=== PATIENT | male | born 1985 | race Caucasian/White ===

== ENCOUNTER 2018-03-24 23:50 | Emergency (ER) | payer OTHER ==
[~2018-03-24] VITALS: Ht 177.8 cm; Wt 70.3 kg
[~2018-03-24 23:50] MED LIST: ACYC200 PO; ALBU90OI INH; CEPH500 PO; HYDACE5 PO; INS70/30I; INSDET100 SQ; INSUASPI SC; INSULIN; META800 PO; METCAR500 PO; NAPR500 PO; OXYACE5T PO; RXTRAM50 PO; TRAM50 PO
[2018-03-25] MEDS ORDERED: IBUP400 PO (00:56)
[2018-03-25] MEDS ORDERED: HYDR1TAB94 PO (00:56)
[2018-03-25] MEDS ORDERED: Flonase 0.05% N16 GM (00:56)
== END 2018-03-25 01:10 | disposition home or self-care (01) ==
LOC: ER 23:50
DX: J32.9 Chronic sinusitis, unspecified (principal); E11.9 Type 2 diabetes mellitus without complications; F17.200 Nicotine dependence, unspecified, uncomplicated; Z79.4 Long term (current) use of insulin
CPT/HCPCS: 99283

== ENCOUNTER 2022-08-31 02:54 | Emergency (ER) | payer OTHER ==
[~2022-08-31] VITALS: Ht 177.8 cm; Wt 72.6 kg
[~2022-08-31 02:54] MED LIST changes: +Flonase 0.05% N16 GM; +HYDR1TAB94 PO; +IBUP400 PO
== END 2022-08-31 05:15 | disposition home or self-care (01) ==
LOC: ER 02:54
DX: S62.636A Displaced fracture of distal phalanx of right little finger, initial encounter for closed fracture (principal); S63.216A Subluxation of metacarpophalangeal joint of right little finger, initial encounter; E11.9 Type 2 diabetes mellitus without complications; F17.210 Nicotine dependence, cigarettes, uncomplicated; Y04.2XXA Assault by strike against or bumped into by another person, initial encounter; Z79.4 Long term (current) use of insulin; Z79.899 Other long term (current) drug therapy
CPT/HCPCS: 73110; 73130; 82947

== ENCOUNTER 2023-11-25 01:44 | Observation (INO) | payer OTHER ==
[2023-11-25] VITALS (35 sets, daily range): BP systolic 110–152; BP diastolic 61–94
[~2023-11-25] VITALS: Ht 180.3 cm; Wt 63.7 kg
[2023-11-25] MEDS ORDERED: Insulin Human Regular 100 UNIT in NS 100 ML IV SCH ×2 (01:55→03:50)
[2023-11-25] MEDS ORDERED: Lactated Ringer's 1,000 ML IV ONE (01:55)
[2023-11-25] MEDS ORDERED: Ondansetron HCl 2 MG / ML 2ML Vial IV PRN ×2 (01:55→03:40)
[2023-11-25 01:57] LABS: Base Excess Venous -24.5 mmol/L; Bicarbonate Venous 9.2 mmol/L (24.0-30.0); PCO2 Venous 21.4 mmHg (38-42)
[2023-11-25 01:59] LABS: pH Blood Venous 7.05 (7.34-7.37)
[2023-11-25] MEDS ORDERED: Metoclopramide HCl 5MG / ML 2ML Vial IV ONE (02:00)
[2023-11-25] MEDS ORDERED: Pantoprazole Sodium 40 MG Injection IV ONE (02:00)
[2023-11-25 02:25] LABS: BASOPHILS ABSOLUTE AUTO 0.09 K/mm3 (0.00-0.23); BASOPHILS PERCENT AUTO 0 % (0-2); EOSINOPHILS ABSOLUTE AUTO 0.02 K/mm3 (0.00-0.68); EOSINOPHILS PERCENT AUTO 0 % (0-6); Hematocrit 47.5 % (37.0-53.0); Hemoglobin 15.9 g/dL (13.5-17.5); IMMATURE GRAN ABSOLUTE AUTO 0.62 K/mm3 (0.00-0.10); IMMATURE GRAN PERCENT AUTO 2 % (0-1); LYMPHOCYTES ABSOLUTE AUTO 1.22 K/mm3 (0.84-5.20); LYMPHOCYTES PERCENT AUTO 4 % (21-46); MONOCYTES PERCENT AUTO 9 % (4-13); Mean Corpuscular HGB 31.1 pg (26.0-34.0); Mean Corpuscular HGB Conc 33.5 g/dL (31.5-36.5); Mean Corpuscular Volume 93 fL (80-100); Mean Platelet Volume 11.4 fL (9.1-12.4); NEUTROPHILS ABSOLUTE AUTO 26.74 K/mm3 (1.96-9.15); NEUTROPHILS PERCENT AUTO 85 % (41-73); Platelet Count 311 K/mm3 (150-400); RDW Coefficient Variation 11.8 % (11.7-14.2); RDW Standard Deviation 40.4 fL (35.1-46.3); Red Blood Cell Count 5.11 M/mm3 (4.30-5.90); White Blood Cell Count 31.49 K/mm3 (4.00-11.30)
[2023-11-25 02:43] LABS: Albumin, Blood 4.2 g/dL (3.4-5.0); Albumin/Globulin Ratio 1.2 (0.8-1.8); Bilirubin, Total 0.8 mg/dL (0.1-1.0); Bun/Creatinine Ratio 32.6 (12.0-20.0); Calcium, Blood 9.6 mg/dL (8.5-10.1); Creatinine, Blood 1.35 mg/dL (0.60-1.20); Globulin, Blood 3.6 g/dL (2.2-4.0); Potassium, Blood 5.8 mmol/L (3.5-5.5); Total Protein, Blood 7.8 g/dL (6.4-8.2)
[2023-11-25] MEDS ORDERED: Lactated Ringer's 1,000 ML IV SCH ×2 (02:45→07:50)
[2023-11-25] MEDS ORDERED: Potassium Chloride 40 MEQ in NS 250 ML IV ONE (02:45)
[2023-11-25 02:52] LABS: BAND PERCENT MAN 8 % (0-8); BASOPHILS PERCENT MAN 0 % (0-2); EOSINOPHILS PERCENT MAN 0 % (0-6); LYMPHOCYTES ABSOLUTE MAN 0.62 K/mm3 (0.84-5.20); LYMPHOCYTES PERCENT MAN 2 % (21-46); MONOCYTES ABSOLUTE MAN 2.51 K/mm3 (0.16-1.47); MONOCYTES PERCENT MAN 8 % (4-13); NEUTROPHILS ABSOLUTE MAN 28.34 K/mm3 (1.96-9.15); SEG NEUTROPHILS PERCENT MAN 82 % (41-73); TOTAL CELLS COUNTED 100
[2023-11-25] MEDS ORDERED: FLU VACC QS2023-24(6MOS UP)/PF 60 MCG/0.5 ML SYRINGE IM ONE (03:40)
[2023-11-25] MEDS ORDERED: Metoclopramide HCl 5MG / ML 2ML Vial IV PRN (03:45)
[2023-11-25] MEDS ORDERED: Sodium Bicarb 8.4% Inj 75 MEQ in Sodium Chloride 0.45% 1,000 ML IV SCH (03:50)
[2023-11-25 03:57] LABS: Source, Urine Clean Catch
[2023-11-25 03:59] LABS: Beta-hydroxybutyrate 135.8 mg/dL (0.2-2.8)
[2023-11-25 03:59] LABS: Appearance, Urine Clear (Clear); Bilirubin, Urine Neg (Neg); Blood, Urine 3+ (Neg); Color, Urine Yellow (P-Yellow); Glucose Qualitative, Urine 4+ (Neg); Ketones, Urine 4+ (Neg); Leukocyte Esterase, Urine 1+ (Neg); Nitrite, Urine Neg (Neg); Protein, Urine 2+ (Neg); Specific Gravity, Urine 1.025 (1.003-1.022); Urobilinogen, Urine NORM (Normal)
[2023-11-25 04:13] LABS: Bacteria Rare /hpf; Red Blood Cells, Urine 0-2 /hpf (0-2); Squamous Epithelial Cells Rare /hpf (Few); White Blood Cells, Urine 0-2 /hpf (0-5)
[2023-11-25 04:37] LABS: Bun/Creatinine Ratio 36.2 (12.0-20.0); Calcium, Blood 8.8 mg/dL (8.5-10.1); Creatinine, Blood 1.27 mg/dL (0.60-1.20); Potassium, Blood 5.2 mmol/L (3.5-5.5)
[2023-11-25 05:38] LABS: International Normalized Ratio 1.08; Prothrombin Time Results 11.3 Sec (9.7-11.5)
[2023-11-25 06:36] LABS: Glucose, Blood 494 mg/dL (70-99)
[2023-11-25] MEDS ORDERED: Enoxaparin 40 MG/0.4 ML SYR SC SCH (09:00)
[2023-11-25] MEDS ORDERED: Acetaminophen 325 MG TABLET PO PRN (09:43)
[2023-11-25] MEDS ORDERED: Lidocaine 2% Viscous Soln 20 ML,Nystatin 100,000 Unit/ml Susp 20 ML,Mag Hydrox/Al Hydro... MT PRN (09:55)
[2023-11-25 10:17] LABS: BASOPHILS ABSOLUTE AUTO 0.03 K/mm3 (0.00-0.23); BASOPHILS PERCENT AUTO 0 % (0-2); EOSINOPHILS PERCENT AUTO 0 % (0-6); Hematocrit 41.3 % (37.0-53.0); Hemoglobin 14.6 g/dL (13.5-17.5); IMMATURE GRAN ABSOLUTE AUTO 0.11 K/mm3 (0.00-0.10); IMMATURE GRAN PERCENT AUTO 1 % (0-1); LYMPHOCYTES PERCENT AUTO 6 % (21-46); MONOCYTES ABSOLUTE AUTO 1.43 K/mm3 (0.16-1.47); MONOCYTES PERCENT AUTO 7 % (4-13); Mean Corpuscular HGB 30.4 pg (26.0-34.0); Mean Corpuscular HGB Conc 35.4 g/dL (31.5-36.5); Mean Platelet Volume 9.9 fL (9.1-12.4); NEUTROPHILS PERCENT AUTO 87 % (41-73); Platelet Count 243 K/mm3 (150-400); RDW Coefficient Variation 11.9 % (11.7-14.2); RDW Standard Deviation 37.2 fL (35.1-46.3); Red Blood Cell Count 4.81 M/mm3 (4.30-5.90); White Blood Cell Count 21.07 K/mm3 (4.00-11.30)
[2023-11-25 10:41] LABS: Mean Corpuscular Volume 86 fL (80-100)
[2023-11-25 10:49] LABS: Albumin, Blood 3.6 g/dL (3.4-5.0); Albumin/Globulin Ratio 1.1 (0.8-1.8); Bilirubin, Total 0.5 mg/dL (0.1-1.0); Bun/Creatinine Ratio 37.1 (12.0-20.0); Calcium, Blood 8.6 mg/dL (8.5-10.1); Creatinine, Blood 1.05 mg/dL (0.60-1.20); Globulin, Blood 3.3 g/dL (2.2-4.0); Potassium, Blood 4.5 mmol/L (3.5-5.5); Total Protein, Blood 6.9 g/dL (6.4-8.2)
--- NOTE | 2023-11-25 10:56 | NUR ---
PT ADMITTED TO ICU FROM ER AT 0750 FOR DKA. PT ARRIVED LETHARGIC/DROWSY, OX3. PT AWAKENS TO ANSWER QUESTIONS BUT QUICKLY FALLS BACK TO SLEEP AFTER ANSWERING. PT ARRIVED WITH BICARB GTT AT 125 AND INSULIN GTT AT 7.3UNITS/HR. INSULIN DECREASED TO 6UNITS AND IS NOW AGAIN AT 7UNITS. BICARB GTT WAS DC'D AND LR WAS STARTED AT 200CC/HR. PT DENIES NAUSEA, C/O GENERALIZED DISCOMFORT "EVERYWHERE". PT C/O MOUTH PAIN. MOUTH IS BRIGHT RED WITH SEVERAL CANKER SORES; LUCIA OUR DENTAL HYGIENIST EVALUATED PT, MAGIC MOUTH WASH ORDERED. MONITOR INITIALLY SHOWED SOME ST EVEVATION IN V LEAD, MD NOTIFED; EKG COMPLETED AND SHOWN TO MD. PT DENIES CP. TROPONINS DRAWN.
--- NOTE | 2023-11-25 11:09 | NUR ---
DR BARRAGAN IN TO CHECK ON PT, UPDATE GIVEN.
[2023-11-25] MEDS ORDERED: D5W-1/2NS 1,000 ML IV SCH ×2 (12:00→18:30)
--- NOTE | 2023-11-25 13:10 | NUR ---
HOME INSULIN REVIEWED WITH PATIENT. PT REMAINS LETHARGIC, PT HAD DIFFICULTY ARTICULATING SHORT ACTING/SLIDING SCALE COVERAGE. PT ABLE TO STATE THAT HE TAKES LONG ACTING 32 UNITS EVERY MORNING, PT DOES NOT KNOW WHAT NAME OR BRAND OF INSULIN. PT STATES HE "THINKS" HE TAKES 1 UNITS FOR EVERY 15CARBS PLUS I UNITS FOR EVERY 50 OVER 200 BS. [facility] CALLED TO COMFIRM; PT HASNT BEEN SEEN SINCE 2018. DR ESCUDERO CALLED TO CONFIRM, PT HASNT BEEN SEEN IN OVER 1 YR AND HAS SEVERAL NO SHOWS. OFFICE IS WILLING TO TAKE HIM BACK ID HE WILL SHOW UP TO SCHEDULED APPOINTMENT. [facility] HAS FILLED INSULIN: [facility] FOR INSULIN PUMP FILLED ON 10/28 AND GLARGINE 32 UNITS Q AM FOR EMERGENCIES WHEN PUMP FAILS; LAST FILLED ON 09/25. PT STATES HE HAS HAD INSURANCE ISSUES AND "GET MY INSULIN FROM WHERE EVER I CAN". CONVENIENCE STORE CLERK AND MD UPDATED. CONVENIENCE STORE CLERK WILL FOLLOW UP W PT.
[2023-11-25] MEDS ORDERED: BASAGLAR K100 UNIT/3 SC (14:03)
[2023-11-25] MEDS ORDERED: HUMALOG KW100 UNIT/1 SC (14:09)
[2023-11-25 16:47] LABS: Bun/Creatinine Ratio 41.8 (12.0-20.0); Calcium, Blood 8.2 mg/dL (8.5-10.1); Creatinine, Blood 0.89 mg/dL (0.60-1.20); Potassium, Blood 3.9 mmol/L (3.5-5.5)
[2023-11-25] MEDS ORDERED: Insulin Glargine-Yfgn 100 Unit/mL 3 ML SYR SC STA (16:55)
[2023-11-25] MEDS ORDERED: ChlordiazePOXIDE 25 MG Cap PO PRN ×2 (17:05)
[2023-11-25] MEDS ORDERED: LORazepam 2 MG/ML 1ML Injection IV PRN (17:05)
[2023-11-25 17:29] LABS: U Amphetamine Screen Not Detected; U Barbituate Screen Not Detected; U Benzodiazapine Screen Not Detected; U Buprenorphine Screen Not Detected; U Cannabinoids Screen DETECTED; U Cocaine Screen DETECTED; U Methadone Screen Not Detected; U Methamphetamine Screen Not Detected; U Opiates Screen Not Detected; U Oxycodone Screen Not Detected; U Phencyclidine Screen Not Detected
[2023-11-25] MEDS ORDERED: Insulin Human Lispro 100 Units/ML 3ML Syringe SC SCH (17:30)
--- NOTE | 2023-11-25 17:48 | NUR ---
PT WOKE UP ENOUGH TO PARTICIPATE IN ADMIT QUESTIONS. PT STATES HE DRINKS ABOUT TWO WHITE CLAWS A DAY, SOMETIMES MORE. PT STATES HE USUES COCAINE, AND DANIELLA MONTHLY AND SOME TIMES MORE OFTEN. PT STATES HE SMOKES THC AND CIGARETTES DAILY. CIWA 0. LAST DRINK WAS 11/23/23. ORDERS RECIEVED TO TRANSITION PT OFF OF INSULIN IF PATIENT ABLE TO EAT. PT OFFERED FOOD AND DECLINED, WILL NOTIFOSCAR ALEMAN. INSULIN GTT REMAINS AT 8UNITS/HR. D51/2 NS AT 125CC/HR.
--- NOTE | 2023-11-25 18:16 | NUR ---
DR BARRAGAN UPDATED. PT TO STAY ON D51/2NS AND INSULIN GTT UNTIL AWAKE, ALERT, AND READY TO EAT.
--- NOTE | 2023-11-25 19:15 | NUR ---
ASSUMPTION OF CARE RECEIVED INTO CARE, REPORT GIVEN BY DAY RN. INSULIN INFUSION AND D51/2NS INFUSION CHECKED WITH EMAR/DAY RN. PT LYING IN BED WITH EYES CLOSED, RESPS APPEAR EASY AND UNLABOURED, IN NSR, VSS. FAMILY AT BEDSIDE. AWAKES TO VERBAL STIMULI. NO VOICED CONCERNS AT THIS TIME CALL MOTT IN REACH.
[2023-11-25] MEDS ORDERED: Potassium Chloride 40 MEQ in NS 250 ML IV STA (21:36)
[2023-11-25 22:25] LABS: Bun/Creatinine Ratio 37.8 (12.0-20.0); Calcium, Blood 7.8 mg/dL (8.5-10.1); Creatinine, Blood 0.87 mg/dL (0.60-1.20); Potassium, Blood 3.7 mmol/L (3.5-5.5)
[2023-11-26] VITALS (10 sets, daily range): BP systolic 107–130; BP diastolic 62–83
[2023-11-26 04:01] LABS: BASOPHILS ABSOLUTE AUTO 0.02 K/mm3 (0.00-0.23); BASOPHILS PERCENT AUTO 0 % (0-2); EOSINOPHILS PERCENT AUTO 0 % (0-6); Hematocrit 37.5 % (37.0-53.0); Hemoglobin 13.2 g/dL (13.5-17.5); IMMATURE GRAN ABSOLUTE AUTO 0.03 K/mm3 (0.00-0.10); IMMATURE GRAN PERCENT AUTO 0 % (0-1); LYMPHOCYTES ABSOLUTE AUTO 1.91 K/mm3 (0.84-5.20); LYMPHOCYTES PERCENT AUTO 14 % (21-46); MONOCYTES ABSOLUTE AUTO 1.21 K/mm3 (0.16-1.47); MONOCYTES PERCENT AUTO 9 % (4-13); Mean Corpuscular HGB 30.5 pg (26.0-34.0); Mean Corpuscular HGB Conc 35.2 g/dL (31.5-36.5); Mean Corpuscular Volume 87 fL (80-100); Mean Platelet Volume 9.4 fL (9.1-12.4); NEUTROPHILS PERCENT AUTO 77 % (41-73); Platelet Count 178 K/mm3 (150-400); RDW Coefficient Variation 11.9 % (11.7-14.2); RDW Standard Deviation 38.1 fL (35.1-46.3); Red Blood Cell Count 4.33 M/mm3 (4.30-5.90); White Blood Cell Count 13.97 K/mm3 (4.00-11.30)
[2023-11-26] MEDS ORDERED: Pantoprazole Sodium 40 MG Injection IV SCH (06:00)
--- NOTE | 2023-11-26 06:06 | NUR ---
SHIFT SUMMARY LETHARGIC AT BEGINNING OF SHIFT THEN BECAME MORE ALERT. IS OREINTED. PAIN TO MOUTH/THROAT, MAGIC MOUTH WASH GIVEN. SLEPT OFF AND ON THROUGHOUT NIGHT. IN NSR, SBP 120-130S. ON RA, SPO2>95%. NO NAUSEA/VOMITING. BLOOD SUGARS HAVE BEEN 98-240. INSULIN RANGING 1-5U/HR. D51/2NS AT 125ML/HR. KCL GIVEN. VOIDED ONCE USING THE URINAL. STAYED AT BEDSIDE HALF THE NIGHT THEN WENT HOME. PT REMAINS LYING IN BED WATCHING TV AT THIS TIME. NO VOICED CONCERNS. CALL MOTT IN REACH.
[2023-11-26 06:07] LABS: Bun/Creatinine Ratio 31.7 (12.0-20.0); Calcium, Blood 7.9 mg/dL (8.5-10.1); Creatinine, Blood 0.73 mg/dL (0.60-1.20); Potassium, Blood 3.7 mmol/L (3.5-5.5)
[2023-11-26] MEDS ORDERED: Insulin Human Lispro 100 Units/ML 3ML Syringe SC SCH (07:30)
[2023-11-26] MEDS ORDERED: Insulin Glargine-Yfgn 100 Unit/mL 3 ML SYR SC SCH ×2 (07:31→21:00)
--- NOTE | 2023-11-26 09:32 | NUR ---
CARE OF PT ASSUMED AT 0700. PT MUCH MORE AWAKE TODAY. INSULIN WAS AT 1.5UNITS/HR ALONG W D51/2NS AT 125CC/HR. PT WAS TRANSITIONED OFF OF INSULIN GTT. 25UNITS LONG ACTING GIVEN THIS AM. PT KATHLEEN JELLO. ATTEMPTED TO EAT BREAKFAST BUT WAS UNABLE TO D/T THROAT AND MOUTH PAIN. PT INITIALLY C/O PAIN 5/10, TYLENOL GIVEN, MAGIC MOUTH WASH GIVEN EARLIER IN SHIFT. PT NOW C/O 8/10 PAIN. AGAIN UNABLE TO TOLERATE ANYTHING BUT JELLO AND LIQUIDS D/T PAIN. DR RIOS CALLED AND UPDATED; AWAITING ORDERS.
[2023-11-26] MEDS ORDERED: Ketorolac Tromethamine 10 MG Tab PO ONE (09:45)
[2023-11-26 10:30] LABS: Creatinine, Blood 0.65 mg/dL (0.60-1.20)
--- NOTE | 2023-11-26 12:29 | NUR ---
PT ABLE TO EAT LUKE WARM SOUP W SALTINE CRACKERS AND SUGAR FREE JELLO AND PUDDING.(LIMITED INTAKE D/T MOUTH AND THROAT PAIN). BS 225. PT'S HOME DOSE IS 1UNIT FOR EVERY 15 CARBS. PT ATE APPROX 22CARBS. PT IS ON LOW SS AND 5 UNITS W EACH MEAL (HOSPITAL ORDERS). 2 UNITS GIVEN PER LOW SS. 5 UNITS W MEAL HELD PER PT HE FELT THIS DOSE WOULD DROP HIS BLOOD SUGAR TOO MUCH.
--- NOTE | 2023-11-26 14:38 | NUR ---
DR BARRAGAN IN TO SEE PT, UPDATE GIVEN. DR BARRAGAN WILL DISCHARGE PATIENT HOME; AWAITING ORDERS.
[2023-11-26] MEDS ORDERED: Phenol/Sodium Phenolate Oral Spray 180 ML MM PRN (14:40)
--- NOTE | 2023-11-26 16:55 | NUR ---
PT GIVEN VERBAL AND WRITTEN DISCHARGE INSTRUCTIONS. RX'S FAXED TO [facility] PER PT REQUEST. NEW PCP APPOINTMENT MADE FOR PT AT [facility] FOR 12/09. PT MEDICATED W SLIDING SCALE INSULIN PRIOR TO DISCHARGE. IV'S DC'D INTACT. PT ESCORTED OUT VIA WHEELCHAIR. PT DISCHARGE HOME IN CARE OF HIS AT 1650 IN STABLE CONDITION.
== END 2023-11-26 17:00 | disposition home or self-care (01) ==
LOC: ER 01:44 → MEDS 01:45 → ERHOLD 01:45 → ICUE 07:51
PROVIDERS: Student in an Organized Health Care Education/Training Program; ADMIT Internal Medicine
DX: E10.10 Type 1 diabetes mellitus with ketoacidosis without coma (principal); R07.89 Other chest pain; F17.210 Nicotine dependence, cigarettes, uncomplicated; N17.9 Acute kidney failure, unspecified; F12.929 Cannabis use, unspecified with intoxication, unspecified; E86.0 Dehydration; Z79.4 Long term (current) use of insulin
CPT/HCPCS: 36415; 71045; 80048; 80053; 81001; 82010; 82803; 82947; 83880; 84484; 85025; 85610; 93005; 93010; 94760; 96361; 96365; 96366; 96368; 96372; 96375; 96376; 99285-25; A9270; C9113; G0378; J1650; J1815; J2405; J2765; J3480; J7042; J7050; J7120